=== PATIENT | female | born 1940 | race American Indian/Alaskan Native ===

== ENCOUNTER 2020-11-28 09:46 | Emergency (ER) | payer MEDICARE ==
[2020-11-28 09:52] VITALS: BP 131/80
--- NOTE | 2020-11-28 10:30 | XRay Report ---
CHEST 2 VIEWS INDICATION / CLINICAL INFORMATION: diff brealthing. COMPARISON: None available. FINDINGS: SUPPORT DEVICES: None. HEART / MEDIASTINUM: No significant abnormality. LUNGS / PLEURA: Questionable nodular density in the left lung. This may be associated with the tram inspector ior rib. No pneumothorax. ADDITIONAL FINDINGS: No significant additional findings. IMPRESSION: 1. Questionable nodular opacity overlying the left lung measuring 1.3 cm. A follow-up chest x-ray or CT to exclude pulmonary nodule. Signer Name: Kayden Robbins MD Signed: 11/28/2020 10:26 AM Workstation Name: [id number]
[2020-11-28 10:51] LABS: Alanine Aminotransferase 18 units/L (7-56); Albumin 4.1 g/dL (3.9-5); BUN/Creatinine Ratio 9; Blood Urea Nitrogen 13 mg/dL (7-17); Calcium 9.3 mg/dL (8.4-10.2); Hemolysis Index 3
[2020-11-28 11:04] LABS: Basophils # (Auto) 0.1 K/mm3 (0.0-0.1); Basophils % (Auto) 0.6 % (0.0-1.8); Eosinophils # (Auto) 0.3 K/mm3 (0.0-0.4); Eosinophils % (Auto) 3.1 % (0.0-4.3); Hematocrit 33.4 % (30.3-42.9); Hemoglobin 10.9 gm/dl (10.1-14.3); Lymphocytes # (Auto) 3.5 K/mm3 (1.2-5.4); Lymphocytes % (Auto) 39.8 % (13.4-35.0); Mean Corpuscular HGB Conc 33 % (30-34); Mean Corpuscular Volume 75 fl (79-97); Monocytes # (Auto) 0.8 K/mm3 (0.0-0.8); Monocytes % (Auto) 9.4 % (0.0-7.3); Platelet Count 176 K/mm3 (140-440); Red Blood Count 4.45 M/mm3 (3.65-5.03); Red Cell Distribution Width 16.6 % (13.2-15.2)
--- NOTE | 2020-11-28 12:56 | Emergency Department Report ---
ED General Adult HPI - General Chief complaint: Chest Pain Stated complaint: CHEST PAIN/COUGH Time Seen by Provider: 11/28/20 12:36 Source: patient Mode of arrival: Ambulatory Limitations: No Limitations - History of Present Illness Initial comments: 80-year-old female patient with remote history of thyroid cancer status post thyroidectomy, diabetes, and hypertension presents to the emergency department with complaints of hoarseness, cough, and chest discomfort starting last week. Patient states she was evaluated by her primary care provider and diagnosed with a sinus infection. She was prescribed antibiotics. Her congestion and sinus pressure resolved but her other symptoms have persisted. Patient does not smoke. No known sick contacts. Denies fever, chills, shortness of breath, palpitations, nausea, vomiting, diaphoresis, lower extremity pain/swelling. Denies all other complaints at this time. Severity scale (0 -10): 5 - Related Data Home Medications Medication Instructions Recorded Confirmed Last Taken Levothyroxine [Synthroid] 88 mcg PO QAM 10/14/15 10/14/15 Unknown Linagliptin [Tradjenta] 5 mg PO QDAY 10/14/15 10/14/15 Unknown amLODIPine 2.5 mg PO DAILY 10/14/15 10/14/15 Unknown labetaloL [Labetalol 200mg TAB] 300 mg PO BID 10/14/15 10/14/15 Unknown metFORMIN [Glucophage] 1,000 mg PO BID 10/14/15 10/14/15 Unknown Previous Rx's Medication Instructions Recorded Last Taken Type Benzonatate [Tessalon Perles] 200 mg PO Q8HR #30 capsule 11/28/20 Unknown Rx predniSONE [Deltasone] 20 mg PO QDAY #5 tab 11/28/20 Unknown Rx Allergies Allergy/AdvReac Type Severity Reaction Status Date / Time No Known Allergies Allergy Unverified 10/14/15 09:43 ED Review of Systems ROS: Stated complaint: CHEST PAIN/COUGH Other details as noted in HPI Other: GENERAL: Negative for fever, chills, weight change, anorexia, fatigue. ENT: Positive for hoarseness. CARDIOVASCULAR: Positive for chest discomfort. PULMONARY: Positive for cough. GASTROINTESTINAL: Negative for abdominal pain, nausea, vomiting, diarrhea, constipation. MUSCULOSKELETAL: Negative for joint pain, joint swelling, myalgias, back pain, neck pain. NEUROLOGICAL: Negative for headache, seizure, syncope, paresthesias, weakness. INTEGUMENTARY: Negative for erythema, rash, diaphoresis, laceration, ecchymosis. HEMATOLOGICAL: Negative for hemoptysis, hematemesis, hematochezia, hematuria. PSYCHIATRIC: Negative for hallucinations, suicidal ideation, homicidal ideation, anxiety, depression. ED Past Medical Hx - Past Medical History Previous Medical History?: Yes Hx Hypertension: Yes Hx Diabetes: Yes Hx Asthma: Yes Hx HIV: No Additional medical history: hypiod - Surgical History Past Surgical History?: Yes Hx Open Heart Surgery: No Hx Cholecystectomy: No Hx Appendectomy: Yes Hx Breast Surgery: No Additional Surgical History: hysterectomy; thyroidectomy 1988 - Social History Smoking Status: Never Smoker - Medications Home Medications: Home Medications Medication Instructions Recorded Confirmed Last Taken Type Levothyroxine [Synthroid] 88 mcg PO QAM 10/14/15 10/14/15 Unknown History Linagliptin [Tradjenta] 5 mg PO QDAY 10/14/15 10/14/15 Unknown History amLODIPine 2.5 mg PO DAILY 10/14/15 10/14/15 Unknown History labetaloL [Labetalol 200mg TAB] 300 mg PO BID 10/14/15 10/14/15 Unknown History metFORMIN [Glucophage] 1,000 mg PO BID 10/14/15 10/14/15 Unknown History Benzonatate [Tessalon Perles] 200 mg PO Q8HR #30 capsule 11/28/20 Unknown Rx predniSONE [Deltasone] 20 mg PO QDAY #5 tab 11/28/20 Unknown Rx ED Physical Exam - General Limitations: No Limitations - Other Other exam information: General: Awake and alert. No acute distress. Head: Atraumatic, normocephalic. Eyes: EOMI. Pupils are equal and round. Normal sclera and conjunctiva. ENT: Oral mucosa is moist. Normal pharyngeal exam. Hoarseness noted. Neck: Supple. No lymphadenopathy. Pulmonary: No respiratory distress. Clear to auscultation bilaterally. Cardiac: Regular rate and rhythm. Pulses are palpable and equal bilaterally. No lower extremity cyanosis or edema. Skin: Warm and dry. No rashes. Abdomen: Soft, non-tender, non-protuberant. No guarding, rigidity, or rebound. Bowel sounds are normal. No organomegaly or masses noted. Back: Normal alignment. No CVA tenderness. Extremities: Symmetrical. Full range of motion intact. Neurological: Alert and oriented, appropriately interactive, no focal deficits. Psych: Cooperative. Appropriate mood and affect. Speech is evenly metered. Thoughts are logically construed. ED Course Vital Signs 11/28/20 09:49 Temperature 98.3 F Pulse Rate 75 Respiratory 18 Rate Blood Pressure 131/80 [Right] O2 Sat by Pulse 95 Oximetry ED Medical Decision Making - Lab Data Result diagrams: 11/28/20 10:11 11/28/20 10:11 - EKG Data 11/28/20 13:03 EKG shows normal sinus rhythm with a ventricular rate of 84 bpm. Left axis deviation. Normal NM interval. Normal QT interval. Good R wave progression. Inferior Q waves unchanged from prior tracing in 2016. Over read by attending emergency physician, who agrees with this interpretation. 11/28/20 14:20: Repeat EKG unchanged. - Radiology Data [facility] [address] [id number] Cat Scan Report Signed Patient: FRANCHESKA ALAN MR#: [id number] : 1940 Acct:[id number] Age/Sex: 80 / F ADM Date: 11/28/20 Loc: ED Attending Dr: Ordering Physician: PHAN AMBROSE Date of Service: 11/28/20 Procedure(s): CT neck w con Accession Number(s): [id number] cc: PHAN AMBROSE NECK CT 11/28/2020 HISTORY: hoarseness, hx thyroid cancer,. FINDINGS: Contrast enhanced CT images of the soft tissues of the neck were obtained. Images are evaluated in the axial, coronal, and sagittal plane. There is no evidence of abnormal neck mass, fluid collection, or inflammation. Soft tissue in the region of the thyroid is relatively hypodense, which may be an indication of treated thyroid cancer. There is subtle asymmetry in positioning of the vocal cords, with the right more medially position. This may be the result of focal cord paralysis. There is no evidence of extrinsic compression. IMPRESSION: No evidence of mass or fluid collection. Slightly asymmetric positioning of the vocal cords. Hypodense thyroid tissue. All CT scans at this location are performed using dose reduction to ALARA by means of automated exposure control. Signer Name: Harrison Nguyen MD Signed: 11/28/2020 2:26 PM Workstation Name: [id number] Transcribed By: AO Dictated By: Harrison Nguyen MD Electronically Authenticated By: Harrison Nguyen MD Signed Date/Time: 11/28/201425 DD/ 20 TD/TT: [facility] [address] [place] [address] Cat Scan Report Signed Patient: FRANCHESKA ALAN MR#: [id number] : 1940 A cct:[id number] Age/Sex: 80 / F ADM Date: 11/28/20 Loc: ED Attending Dr: Ordering Physician: PHAN AMBROSE Date of Service: 11/28/20 Procedure(s): CT chest w con Accession Number(s): [id number] cc: PHAN AMBROSE CT CHEST WITH CONTRAST INDICATION / CLINICAL INFORMATION: hoarseness, hx thyroid cancer, nodule on CXR OMNI 300 100 ML. TECHNIQUE: Axial CT images were obtained through the chest after IV contrast. All CT scans at this location are performed using CT dose reduction for ALARA by means of automated exposure control. COMPARISON: Chest radiograph from 11/28/2020. Chest radiograph from 10/14/2015. CT from 10/14/2015. FINDINGS: THORACIC AORTA: No significant abnormality. HEART: No significant abnormality. MEDIASTINUM / RONEN: No significant thoracic lymphadenopathy. LUNGS/PLEURA: 9 mm nodule left upper lobe (series 302 image 199). This is not definitely calcified. This was not included on prior CT from 2015, though may have been present on radiograph from 2015. Adjacent 5 mm nodule noted within the left upper lobe (series 302 image 217), not definitely seen on prior studies. There are additional sub-6 mm pulmonary nodules at the right lower lobe, to include 4 mm nodule on series 302 image 320. These were present on prior CT from 2016, suggesting benign etiology. Additionally, these may be calcified. No acute airspace consolidation. No pleural effusion or pneumothorax. ADDITIONAL CHEST FINDINGS: None. UPPER ABDOMEN: No significant abnormality. SKELETAL SYSTEM: No significant abnormality. IMPRESSION: 1. Multiple subcentimeter pulmonary nodules, largest in left upper lobe measuring 9 mm. This nodule may have been present on prior radiograph from 10/14/2015. Adjacent 5 mm left upper lobe nodule was not discretely seen on prior studies. Other tiny right lower lobe nodules were present on prior CT of the abdomen from 2016, suggestive of benign etiology. Recommend CT follow-up in 3 months to assess for stability. Alternately, PET/CT may be considered for the left upper lobe nodule. 2. No acute findings in the chest. Signer Name: Marta Haynes MD Signed: 11/28/2020 2:39 PM Workstation Name: [id number] Transcribed By: HUANG Dictated By: MARTA HAYNES MD Electronically Authenticated By: MARTA HAYNES MD Signed Date/Time: 11/28/20 1439 DD/ 1420 TD/TT: - Medical Decision Making Differential diagnosis including but not limited to: acute coronary syndrome, pericarditis, pericardial effusion/cardiac tamponade, pneumonia, laryngitis, influenza, viral upper respiratory infection, pleural effusion, subacute thyroiditis, malignancy 10:25: Patient presents to the emergency department with complaints of reproducible chest pain in the setting of cough and hoarseness. Treated with an tibiotics for sinus infection by primary care provider last week. Labs are unremarkable. EKG without acute injury pattern. Chest x-ray shows nonspecific pulmonary nodule. Further imaging recommended. In the setting of patient's new onset hoarseness and history of thyroid cancer, CT of the neck/chest will be obtained for further evaluation. 14:20: On reevaluation, patient remains stable. Repeat EKG and repeat troponin within normal limits. CT of the chest shows multiple subcentimeter pulmonary nodules, some of which were previously identified on prior scans. Outpatient PET scan/CT scan recommended. No clinical indication for further diagnostic work-up on an emergent basis at this time. Exceedingly low clinical suspicion for acute coronary syndrome given the nonexertional, constant, reproducible nature of the patient's chest pain in the setting of coughing. Patient states she underwent a cardiac stress test last year, which was within normal limits. However, due to her advanced age and underlying comorbidities, patient's job development specialist will be consulted for recommendations. 15:15: Paged [facility]. 15:45: Case discussed with nurse practitioner on-call for Dr. Zhu, who agrees to evaluate patient in the emergency department. 16:31: Paged nurse practitioner on-call for Dr. Zhu, who is no longer available to evaluate patient in the emergency department. However, the patient's case was discussed by telephone, and patient deemed an appropriate candidate for close outpatient follow-up. On reevaluation, patient remains stable. States she is feeling better and is comfortable being discharged home. Patient has been provided with a copy of her CT results. Emphasized the importance of following up with the job development specialist this week as well as her primary care provider for further outpatient evaluation of abnormal CT findings. Patient specifically instructed to bring a copy of today's imaging results with her to her follow-up appointment. Patient expressed understanding and is agreeable to plan of care. Discharged home with appropriate symptomatic treatment. Strict return precautions provided. Repeat exam is unremarkable and benign. History, exam, diagnostic testing, and current condition do not suggest worrisome pathology to warrant further testing, continued ED treatment, admission, or surgical evaluation at this point. Given the low probability of a significant medical illness, it would be more likely to result in harm than benefit to perform further testing at this stage. Discussed findings, presumptive diagnosis, need for follow-up and specific signs/symptoms that should prompt immediate return to the emergency department. Instructions were explained in detail to the patient in addition to giving written discharge information. Patient expressed understanding and was given the opportunity to ask questions, all of which were satisfactorily answered prior to discharge home. Critical care attestation.: If time is entered above; I have spent that time in minutes in the direct care of this critically ill patient, excluding procedure time. ED Disposition Clinical Impression: Multiple pulmonary nodules Disposition: HOME / SELF CARE / HOMELESS Is pt being admited?: No Does the pt Need Aspirin: No Condition: Stable Instructions: Incidental Abnormal Radiological Finding Additional Instructions: Take Tylenol every 4 hours as needed for pain. Take Prednisone with food as directed. Monitor your blood glucose levels closely while taking this medication. Take Tessalon as directed for cough. Rest. Drink plenty of fluids. Wash hands frequently to prevent disease transmission. Do not share food or drinks with others. Follow-up with your primary care provider this week. Call tomorrow to schedule an appointment. Bring a copy of today's CT results with you to your follow-up appointment. Follow-up with your job development specialist this week. Call tomorrow to schedule an appointment. Return to the emergency department immediately for new or worsening symptoms. Specifically, return to the emergency department immediately for fever, worsening chest pain, difficulty breathing, vomiting, sweating, palpitations, loss of consciousness, lower extremity pain/swelling, or any other concerns. Prescriptions: predniSONE [Deltasone] 20 mg PO QDAY #5 tab Benzonatate [Tessalon Perles] 200 mg PO Q8HR #30 capsule Referrals: LEÓN TORRES MD [Primary Care Provider] - 3-5 Days LIBAN ZHU MD [Staff Physician] - 3-5 Days Time of Disposition: 16:36 HEART Score - HEART Score Troponin: Troponin T < 0.010 ng/mL (0.00-0.029) 11/28/20 12:52
--- NOTE | 2020-11-28 14:30 | Cat Scan Report ---
NECK CT 11/28/2020 HISTORY: hoarseness, hx thyroid cancer,. FINDINGS: Contrast enhanced CT images of the soft tissues of the neck were obtained. Images are evalu ated in the axial, coronal, and sagittal plane. There is no evidence of abnormal neck mass, fluid collection, or inflammation. Soft tissue in the region of the thyroid is relatively hypodense, which may be an indication of treat ed thyroid cancer. There is subtle asymmetry in positioning of the vocal cords, with the right more medially position. T his may be the result of focal cord paralysis. There is no evidence of extrinsic compression. IMPRESSION: No evidence of mass or fluid collection. Slightly asymmetric positioning of the vocal cords. Hypodense thyroid tissue. All CT scans at this location are performed using dose reduction to ALARA by means of automated expos ure control. Signer Name: Harrison Nguyen MD Signed: 11/28/2020 2:26 PM Workstation Name: [id number]
--- NOTE | 2020-11-28 14:43 | Cat Scan Report ---
CT CHEST WITH CONTRAST INDICATION / CLINICAL INFORMATION: hoarseness, hx thyroid cancer, nodule on CXR OMNI 300 100 ML. TECHNIQUE: Axial CT images were obtained through the chest after IV contrast. All CT scans at this location are performed using CT dose reduction for ALARA by means of automated exposure control. COMPARISON: Chest radiograph from 11/28/2020. Chest radiograph from 10/14/2015. CT from 10/14/2015. FINDINGS: THORACIC AORTA: No significant abnormality. HEART: No significant abnormality. MEDIASTINUM / RONEN: No significant thoracic lymphadenopathy. LUNGS/PLEURA: 9 mm nodule left upper lobe (series 302 image 199). This is not definitely calcified. T his was not included on prior CT from 2016, though may have been present on radiograph from 10/14/2015 . Adjacent 5 mm nodule noted within the left upper lobe (series 302 image 217), not definitely seen o n prior studies. There are additional sub-6 mm pulmonary nodules at the right lower lobe, to include 4 mm nodule on series 302 image 320. These were present on prior CT from 2016, suggesting benign etio logy. Additionally, these may be calcified. No acute airspace consolidation. No pleural effusion or p neumothorax. ADDITIONAL CHEST FINDINGS: None. UPPER ABDOMEN: No significant abnormality. SKELETAL SYSTEM: No significant abnormality. IMPRESSION: 1. Multiple subcentimeter pulmonary nodules, largest in left upper lobe measuring 9 mm. This nodule m ay have been present on prior radiograph from 10/14/2015. Adjacent 5 mm left upper lobe nodule was not discretely seen on prior studies. Other tiny right lower lobe nodules were present on prior CT of th e abdomen from 2016, suggestive of benign etiology. Recommend CT follow-up in 3 months to assess for stability. Alternately, PET/CT may be considered for the left upper lobe nodule. 2. No acute findings in the chest. Signer Name: Skip Haynes MD Signed: 11/28/2020 2:39 PM Workstation Name: [id number]
--- NOTE | 2020-12-02 08:45 | Electrocardiograph Report ---
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
--- NOTE | 2020-12-02 08:47 | Electrocardiograph Report ---
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
== END 2020-11-28 17:00 | disposition home or self-care (01) ==
LOC: ED 09:46
DX: R91.8 Other nonspecific abnormal finding of lung field (principal); I10 Essential (primary) hypertension; E11.8 Type 2 diabetes mellitus with unspecified complications; J45.909 Unspecified asthma, uncomplicated; Z98.890 Other specified postprocedural states
CPT/HCPCS: 36415; 70491; 71046; 71260; 80053; 84484; 85025; 93005; 99284; Q9967